=== PATIENT | female | born 1970 | race Caucasian/White ===

== ENCOUNTER → 2017-02-03 | Outpatient (CLI) | payer MEDICARE ==
[~2017-02-03] MED LIST: CALC200T3 PO; CHOL200012 PO; CITA20TA9 PO; CLON-365 PO; DOXE50CA PO; GABA800T2 PO; LEVE750T8 PO; LEVO137T2 PO; LEVO175T5 PO; MELO-190 PO; MORP30TA3 PO; MULT-516 PO; OXYC1TAB9 PO; OXYC5TAB3 PO; THYR30TA PO; TIZA4TAB PO
== END | disposition home or self-care (01) ==
LOC: CARD 12:28
PROVIDERS: ATTEND Specialist
DX: R53.1 Weakness (principal); R20.0 Anesthesia of skin; G47.01 Insomnia due to medical condition
CPT/HCPCS: 95819

== ENCOUNTER 2018-05-24 14:57 | Emergency (ER) | payer MEDICARE ==
[~2018-05-24] VITALS: Ht 180.3 cm; Wt 89.3 kg
[~2018-05-24 14:57] MED LIST changes: -CHOL200012 PO; +CHOL200074 PO; -MELO-190 PO; +MELO7.5T31 PO; +OXYC-432 PO; -OXYC1TAB9 PO
[2018-05-24] MEDS ORDERED: SODIUM CHLORIDE FLUSH 10ML SYR IVF ONE (15:30)
[2018-05-24] MEDS ORDERED: ZONI50CA2 PO (15:38)
[2018-05-24] MEDS ORDERED: QUET300T PO (15:38)
[2018-05-24] MEDS ORDERED: PROG100C16 PO (15:38)
[2018-05-24] MEDS ORDERED: LIOT5TAB3 PO (15:38)
[2018-05-24] MEDS ORDERED: LORazepam 2 MG/ML, 1ML ONE (15:40)
[2018-05-24 15:42] LABS: BASOPHILS # (AUTO) 0.12 x10^3/uL (0-0.1); BASOPHILS % (AUTO) 1 % (0-1); EOSINOPHILS # (AUTO) 0.08 x10^3/uL (0-0.4); EOSINOPHILS % (AUTO) 1 % (1-7); LYMPHOCYTES # (AUTO) 2.34 x10^3/uL (1-3.4); LYMPHOCYTES % (AUTO) 26 % (22-44); MD NO; MEAN CORPUSCULAR HEMOGLOBIN 31.5 pg (27.0-34.8); MEAN CORPUSCULAR HGB CONC 34.3 g/dL (32.4-35.8); MEAN CORPUSCULAR VOLUME 91.7 fL (80-100); MEAN PLATELET VOLUME 8.1 fL (7.4-10.4); MONOCYTES % (AUTO) 6 % (2-9); NEUTROPHILS # (AUTO) 6.12 x10^3/uL (1.8-6.8); NEUTROPHILS % (AUTO) 67 % (42-75); PLATELET COUNT 343 x10^3/uL (130-400); RED BLOOD COUNT 4.78 x10^6/uL (3.82-5.3); RED CELL DISTRIBUTION WIDTH 13.2 % (9.6-15.2)
[2018-05-24 15:55] LABS: ALBUMIN 4.4 g/dL (3.4-5.0); ANION GAP 8 mmol/L (5-15); CALCIUM 9.4 mg/dL (8.5-10.1); CHLORIDE 107 mmol/L (98-107)
[2018-05-24] MEDS ORDERED: LORazepam 2 MG/ML, 1ML IVPush ONE (16:00)
[2018-05-24 16:03] LABS: ALANINE AMINOTRANSFERASE 26 U/L (12-78); ALKALINE PHOSPHATASE 85 U/L (45-117); CREATININE 1.19 mg/dL (0.55-1.02); FREE T4 (FREE THYROXINE) 1.11 ng/dL (0.76-1.46); TOTAL PROTEIN 8.1 g/dL (6.4-8.2); TROPONIN I < 0.015 ng/mL (0.000-0.045)
[2018-05-24 16:32] LABS: MICROSCOPIC NOT IND
[2018-05-24 16:44] LABS: CULTURE INDICATED? NO
[2018-05-24 17:06] VITALS: BP 123/79
== END 2018-05-24 17:29 | disposition home or self-care (01) ==
LOC: ED 16:30
DX: R55 Syncope and collapse (principal); R00.2 Palpitations; Z85.850 Personal history of malignant neoplasm of thyroid
CPT/HCPCS: 36415; 70450; 71045; 80053; 81003; 83735; 84439; 84443; 84484; 85025; 93005; 96374; 99285; J2060

== ENCOUNTER 2020-09-16 14:16 | Emergency (ER) | payer MEDICARE ==
[~2020-09-16] VITALS: Ht 180.3 cm; Wt 88.9 kg
[~2020-09-16 14:16] MED LIST changes: -CLON-365 PO; +CLON1TAB11 PO; -GABA800T2 PO; +GABA800T5 PO; +LIOT5TAB11 PO; +MORP-30 PO; -MORP30TA3 PO; -OXYC-432 PO; +OXYC1TAB18 PO; +PROG100C16 PO; +QUET300T PO; -TIZA4TAB PO; +TIZA4TAB2 PO; +ZONI50CA10 PO
[2020-09-16 14:47] LABS: BASOPHILS % (AUTO) 1 % (0-1); EOSINOPHILS % (AUTO) 1 % (1-7); LYMPHOCYTES % (AUTO) 21 % (22-44); MEAN CORPUSCULAR HEMOGLOBIN 30.8 pg (27.0-34.8); MEAN CORPUSCULAR HGB CONC 33.3 g/dL (32.4-35.8); MEAN PLATELET VOLUME 7.4 fL (7.4-10.4); MONOCYTES % (AUTO) 5 % (2-9); NEUTROPHILS % (AUTO) 73 % (42-75); PLATELET COUNT 371 x10^3/uL (130-400); RED BLOOD COUNT 4.58 x10^6/uL (3.82-5.3); RED CELL DISTRIBUTION WIDTH 13.1 % (9.6-15.2)
[2020-09-16 14:48] LABS: MD NO
[2020-09-16 15:08] LABS: MICROSCOPIC INDICATED
[2020-09-16 15:16] LABS: ALANINE AMINOTRANSFERASE 20 U/L (12-78); ALBUMIN 4.3 g/dL (3.4-5.0); ALKALINE PHOSPHATASE 86 U/L (45-117); ANION GAP 6 mmol/L (5-15); BILIRUBIN,TOTAL 0.3 mg/dL (0.2-1.0); CALCIUM 9.1 mg/dL (8.5-10.1); CHLORIDE 109 mmol/L (98-107); CREATININE 1.25 mg/dL (0.55-1.02); TOTAL PROTEIN 8.1 g/dL (6.4-8.2)
--- NOTE | 2020-09-16 16:40 | NUR ---
PT TO ROOM WITH TECH FROM [facility]. NAD NOTED. PT REPORTS L FLANK PAIN AND HEMATURIA X 09/02. SEEN BY PCP FOR SAME, GIVEN CIPRO FOR UTI. PT REPORTS PAIN HAS WORSENED; +DYSURIA/L FLANK PAIN. DENIES FEVER. ONE EPISODE OF N/V PRIOR TO BEING SEEN BY PCP.
--- NOTE | 2020-09-16 17:26 | NUR ---
HEARING AIDE TECHNICIAN MADE AWARE THAT CT IS OKAY PER ERP DESPITE BORDERLINE HCG LEVELS. PER ERP, PT IS NO LONGER MENSTURATING.
--- NOTE | 2020-09-16 17:31 | NUR ---
PT UPDATED TO POC (CT/RESULTS/RECHECK) AND DEMONSTRATES UNDERSTANDING. PT REPORTS PAIN, 4-6/10 BUT DENIES NEED FOR PAIN OR NAUSEA MEDICATIONS.
[2020-09-16] MEDS ORDERED: TAMSULOSIN 0.4 MG CAP.ER.24H ONE (18:29)
[2020-09-16] MEDS ORDERED: TAMSULOSIN 0.4 MG CAP.ER.24H PO ONE (18:30)
[2020-09-16 18:39] VITALS: BP 130/90
--- NOTE | 2020-09-16 18:42 | NUR ---
DC EDUCATION PROVIDED, PT DEMONSTRATES UNDERSTANDNG. PT AMBULATED STEADILY TO DC
== END 2020-09-16 18:44 | disposition home or self-care (01) ==
LOC: ED 17:30
DX: N13.2 Hydronephrosis with renal and ureteral calculous obstruction (principal); Z85.850 Personal history of malignant neoplasm of thyroid
CPT/HCPCS: 36415; 74176; 80053; 81001; 84703; 85025; 87086; 99284